=== PATIENT | female | born 1985 | race Caucasian/White ===

== ENCOUNTER 2019-07-20 17:14 | Emergency (ER) | payer BC ==
[2019-07-20 17:27] VITALS: BP 122/83
[2019-07-20] MEDS ORDERED: Ketorolac 30 MG/ML SDV IVPUSH ONE (17:33)
[2019-07-20] MEDS ORDERED: Metoclopramide 10 MG/2 ML SDV IVPUSH ONE (17:33)
[2019-07-20] MEDS ORDERED: Sodium Chloride 0.9% 10 ML Syringe FLUSH PRN (17:33)
[2019-07-20] MEDS ORDERED: diphenhydrAMINE 50 MG/ML SDV IVPUSH ONE (17:33)
--- NOTE | 2019-07-20 17:42 | EDM.PDOC ---
ED HPI GENERAL MEDICAL PROBLEM - General Chief Complaint: Headache Stated Complaint: MIGRAINE Time Seen by Provider: 07/20/19 17:24 Source of Information: Reports: Patient, RN Notes Reviewed History Limitations: Reports: No Limitations - History of Present Illness INITIAL COMMENTS - FREE TEXT/NARRATIVE: Patient is a 33-year-old female who presents to the ED for evaluation of a headache. Patient notes that she has a history of headaches, this one started around 2 PM today. However she did notice some bothersome headache type symptoms throughout the weekend. The patient states that she tried taking Excedrin migraine, Tobin back and body and her muscle relaxer Flexeril but nothing has helped much. She notes that this one seems to be more intense than her normal migraines, she is light and sound sensitive does not have any blurred vision double vision, no nausea vomiting or diarrhea, no chest pain or no shortness of breath. She just feels as if her head is in a vice-like clamp. She would rate her pain at a 7 out of 10 today and also characterizes as a throbbing pain in nature. 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 (See Below) Other ASSISTANT MANAGER PT History: csection 2013 Psychiatric History: Reports: Depression Social & Family History - Tobacco Use Smoking Status *Q: Never Smoker - Caffeine Use Caffeine Use: Reports: Coffee - Recreational Drug Use Recreational Drug Use: No ED ROS GENERAL - Review of Systems Review Of Systems: See Below Constitutional: Denies: Fever, Chills HEENT: Denies: Eye Pain, Vision Change Respiratory: Denies: Shortness of Breath Cardiovascular: Denies: Chest Pain Endocrine: Reports: No Symptoms GI/Abdominal: Denies: Abdominal Pain, Diarrhea, Nausea, Vomiting : Reports: No Symptoms Musculoskeletal: Reports: No Symptoms Skin: Reports: No Symptoms Neurological: Reports: Headache. Denies: Dizziness Psychiatric: Reports: No Symptoms Hematologic/Lymphatic: Reports: No Symptoms Immunologic: Reports: No Symptoms - Physical Exam Exam: See Below Exam Limited By: No Limitations General Appearance: Alert, WD/WN, No Apparent Distress (pt is in a darkened room and speaks softly and quietly.) Eye Exam: Bilateral Eye: EOMI, Normal Inspection, PERRL Ears: Normal External Exam Nose: Normal Inspection Throat/Mouth: Normal Inspection, Normal Lips, Normal Teeth, Normal Gums, Normal Oropharynx, Normal Voice, No Airway Compromise Head Exam: Atraumatic, Normocephalic Neck: Normal Inspection, Supple, Non-Tender, Full Range of Motion Respiratory/Chest: No Respiratory Distress, Lungs Clear, Normal Breath Sounds, No Accessory Muscle Use, Chest Non-Tender Cardiovascular: Normal Peripheral Pulses, Regular Rate, Rhythm, No Murmur GI/Abdominal: Normal Bowel Sounds, Soft, Non-Tender, No Distention, No Mass Neuro Exam (Abbreviated): Alert, Oriented, Normal Cognition, Normal Gait, No Motor/Sensory Deficits Extremities: Normal Inspection, Normal Capillary Refill Psychiatric: Normal Affect, Normal Mood Skin Exam: Warm, Dry, Intact, Normal Color, No Rash Course - Vital Signs Last Recorded V/S: Last Vital Signs Temp 98.2 F 07/20/19 17:24 Pulse 79 07/20/19 17:24 Resp 18 07/20/19 17:24 BP 122/83 07/20/19 17:24 Pulse Ox 98 07/20/19 17:24 - Orders/Labs/Meds Orders: Active Orders 24 hr Category Date Time Status Peripheral IV Care [RC] . DIRECTED Care 07/20/19 17:33 Ordered Sodium Chloride 0.9% @ 125 MLS/HR (1000ml Bag) Med 07/20/19 17:45 Ordered Sodium Chloride 0.9% [Normal Saline] 1,000 ml IV ASDIRECTED Sodium Chloride 0.9% [Saline Flush] Med 07/20/19 17:33 Ordered 10 ml FLUSH ASDIRECTED PRN Peripheral IV Insertion Adult [OM.PC] Routine Oth 07/20/19 17:33 Ordered Medication Orders Sodium Chloride (Normal Saline) 1,000 mls @ 125 mls/hr IV ASDIRECTED JANNET Last Admin: 07/20/19 17:41 Dose: 125 mls/hr Sodium Chloride (Saline Flush) 10 ml FLUSH ASDIRECTED PRN PRN Reason: Keep Vein Open Last Admin: 07/20/19 17:42 Dose: 10 ml Meds: Medications Generic Name Dose Route Start Last Admin Trade Name Freq PRN Reason Stop Dose Admin Sodium Chloride 1,000 mls @ 125 mls/hr 07/20/19 17:45 07/20/19 17:41 Normal Saline IV 125 mls/hr ASDIRECTED JANNET Administration Sodium Chloride 10 ml 07/20/19 17:33 07/20/19 17:42 Saline Flush FLUSH 10 ml ASDIRECTED PRN Administration Keep Vein Open Discontinued Medications Generic Name Dose Route Start Last Admin Trade Name Freq PRN Reason Stop Dose Admin Diphenhydramine HCl 25 mg 07/20/19 17:33 07/20/19 17:43 Benadryl IVPUSH 07/20/19 17:34 25 mg ONETIME ONE Administration Ketorolac Tromethamine 30 mg 07/20/19 17:33 07/20/19 17:42 Toradol IVPUSH 07/20/19 17:34 30 mg ONETIME ONE Administration Metoclopramide HCl 10 mg 07/20/19 17:33 07/20/19 17:44 Reglan IVPUSH 07/20/19 17:34 10 mg ONETIME ONE Administration - Re-Assessments/Exams Free Text/Narrative Re-Assessment/Exam: 07/20/19 17:42 Patient presents to the ED for evaluation of a headache. Did order IV to be placed with some IV fluids, Toradol, Reglan, and Benadryl for initial management. 07/20/19 19:10 Patient was reassessed at bedside, and she states she feels much better and her headache has subsided substantially. We will discharge home with general recommendations. Departure - Departure Time of Disposition: 19:10 Disposition: Home, Self-Care 01 Condition: Fair Clinical Impression: Headache Qualifiers: Headache type: tension-type Headache chronicity pattern: acute headache Intractability: not intractable Qualified Code(s): G44.209 - Tension-type headache, unspecified, not intractable - Discharge Information *PRESCRIPTION DRUG MONITORING PROGRAM REVIEWED*: No *COPY OF PRESCRIPTION DRUG MONITORING REPORT IN PATIENT OSCAR: No Referrals: Ayleen Washington [facility] [Primary Care Provider] - Forms: ED Department Discharge Additional Instructions: You were evaluated in the ED today for your headache. You were given some IV fluids and a combination of IV medications that helped to relieve your headache quite substantially. Recommend that you go home and sleep in a quiet dark room, try to keep yourself well hydrated. Please return to the ED if your symptoms should change or worsen. - My Orders Last 24 Hours: My Active Orders 07/20/19 17:33 Peripheral IV Care [RC] . DIRECTED Sodium Chloride 0.9% [Saline Flush] 10 ml FLUSH ASDIRECTED PRN Peripheral IV Insertion Adult [OM.PC] Routine 07/20/19 17:45 Sodium Chloride 0.9% @ 125 MLS/HR (1000ml Bag) Sodium Chloride 0.9% [Normal Saline] 1,000 ml IV ASDIRECTED - Assessment/Plan Last 24 Hours: My Active Orders 07/20/19 17:33 Peripheral IV Care [RC] . DIRECTED Sodium Chloride 0.9% [Saline Flush] 10 ml FLUSH ASDIRECTED PRN Peripheral IV Insertion Adult [OM.PC] Routine 07/20/19 17:45 Sodium Chloride 0.9% @ 125 MLS/HR (1000ml Bag) Sodium Chloride 0.9% [Normal Saline] 1,000 ml IV ASDIRECTED
[2019-07-20] MEDS ORDERED: Sodium Chloride 0.9% 1,000 ML IV SCH (17:45)
== END 2019-07-20 19:30 | disposition home or self-care (01) ==
LOC: JD.ED 17:14
DX: G44.209 Tension-type headache, unspecified, not intractable (principal); F32.9 Major depressive disorder, single episode, unspecified; Z79.899 Other long term (current) drug therapy
CPT/HCPCS: 96361; 96374; 96375; 99283; J1200; J1885; J2765; J7040

== ENCOUNTER 2020-05-19 07:27 | Day surgery (SDC) | payer BC ==
[~2020-05-19 07:27] MED LIST: Lactated Ringers 1,000 ML IV SCH; Lidocaine 1% 4 ML ONE; Lidocaine 1%/Sod Bicarbonate in NS 8.4% 1 ML Syringe IDERM PRN; Midazolam 1 MG/ML 2 ML SDV ONE; Ondansetron 4 MG/2 ML SDV ONE; Propofol 200 MG/20 ML SDV ONE; Sodium Chloride 0.9% 10 ML Syringe FLUSH PRN; Succinylcholine/Sod PF 100 MG/5 ML SYRINGE IV ONE; fentaNYL 100 MCG/2 ML SDV ONE
--- NOTE | 2020-05-19 08:02 | PCM.PREANE ---
Preanesthetic Assessment - Anesthesia/Transfusion/Family Hx Anesthesia History: Prior Anesthesia Without Reaction Other Type of Anesthesia Reaction Comment: Possibly Difficult Intubation - Review of Systems General: No Symptoms Pulmonary: No Symptoms Cardiovascular: No Symptoms Gastrointestinal: No Symptoms Neurological: No Symptoms Other: Reports: None - Physical Assessment NPO Status Date: 05/18/20 NPO Status Time: 22:00 Vital Signs: Last Vital Signs Temp 98.4 F 05/19/20 07:30 Pulse 73 05/19/20 07:30 Resp 16 05/19/20 07:30 BP 114/78 05/19/20 07:30 Pulse Ox 98 05/19/20 07:30 Height: 1.7 m Weight: 71.214 kg ASA Class: 1 Mental Status: Alert & Oriented x3 Airway Class: Mallampati = 4 (very small chin and small mouth opening. Potentially difficult airway) Dentition: Reports: Normal Dentition, Metzger(s) Thyro-Mental Finger Breadths: 3 Mouth Opening Finger Breadths: 3 ROM/Head Extension: Full Lungs: Clear to Auscultation, Normal Respiratory Effort Cardiovascular: Regular Rate, Regular Rhythm - Allergies Allergies/Adverse Reactions: Allergies Allergy/AdvReac Type Severity Reaction Status Date / Time No Known Allergies Allergy Verified 05/18/20 15:32 - Acknowledgements Anesthesia Type Planned: General Anesthesia Pt an Appropriate Candidate for the Planned Anesthesia: Yes Alternatives and Risks of Anesthesia Discussed w Pt/Guardian: Yes Pt/Guardian Understands and Agrees with Anesthesia Plan: Yes PreAnesthesia Questionnaire HEENT History: Reports: Allergic Rhinitis, Other (See Below) Other HEENT History: left ear infection, left eye conjuctivitis, sinusitis, eustachian tube dysfunction Cardiovascular History: Reports: None Respiratory History: Reports: Bronchitis, Recurrent, Other (See Below) Other Respiratory History: snoring, cough Genitourinary History: Reports: Renal Calculus, Other (See Below) Other Genitourinary History: suprapubic pain, flank pain MEAT HOSTESS History: Reports: Other (See Below) Other OB/BYN History: menorrhagia, metrohaggia, vaginitis Musculoskeletal History: Reports: None Neurological History: Reports: Headaches, Chronic, Migraines Psychiatric History: Reports: Anxiety, Depression Endocrine/Metabolic History: Reports: Vitamin D Deficiency, Other (See Below) Other Endocrine/Metabolic History: vitamin b12 deficiency, unwanted hair Hematologic History: Reports: None Immunologic History: Reports: None Oncologic (Cancer) History: Reports: None Dermatologic History: Reports: None - Past Surgical History Head Surgeries/Procedures: Reports: None HEENT Surgical History: Reports: Naso-Sinus Surgery, Tonsillectomy Cardiovascular Surgical History: Reports: None Respiratory Surgical History: Reports: None GI Surgical History: Reports: Cholecystectomy Female Surgical History: Reports: None Male Surgical History: Reports: None Endocrine Surgical History: Reports: None Neurological Surgical History: Reports: None Musculoskeletal Surgical History: Reports: None Oncologic Surgical History: Reports: None Dermatological Surgical History: Reports: None - SUBSTANCE USE Smoking Status *Q: Former Smoker Recreational Drug Use History: No - HOME MEDS Home Medications: Home Meds Citalopram [Citalopram HBr] 20 mg PO DAILY 07/20/19 [History] Cyclobenzaprine [Flexeril] 10 mg PO BEDTIME PRN 07/20/19 [History] Montelukast [Singulair] 10 mg PO DAILY 07/20/19 [History] - CURRENT (IN HOUSE) MEDS Current Meds: Current Medications Lactated Ringer's (Ringers, Lactated) 1,000 mls @ 125 mls/hr IV ASDIRECTED JANNET Stop: 05/19/20 23:00 Last Admin: 05/19/20 07:50 Dose: 125 mls/hr Documented by: Lidocaine/Sodium Bicarbonate (Buffered Lidocaine 1% In Ns 8.4%) 0.25 ml IDERM ONETIME PRN PRN Reason: Prior to IV Start Stop: 05/19/20 18:00 Last Admin: 05/19/20 07:49 Dose: 0.25 ml Documented by: Sodium Chloride (Saline Flush) 10 ml FLUSH ASDIRECTED PRN PRN Reason: Keep Vein Open Stop: 05/19/20 18:00 Discontinued Medications Fentanyl (Sublimaze) Confirm Administered Dose 200 mcg .ROUTE .STK-MED ONE Stop: 05/19/20 07:14 Lidocaine HCl (Xylocaine-Mpf 1%) Confirm Administered Dose 4 mls @ as directed .ROUTE .STK-MED ONE Stop: 05/19/20 07:25 Midazolam HCl (Versed 1 Mg/Ml) Confirm Administered Dose 2 mg .ROUTE .STK-MED ONE Stop: 06/26/20 07:14 Ondansetron HCl (Zofran) Confirm Administered Dose 8 mg .ROUTE .STK-MED ONE Stop: 05/19/20 07:25 Propofol (Diprivan 20 Ml) Confirm Administered Dose 200 mg .ROUTE .STK-MED ONE Stop: 05/19/20 07:14
[2020-05-19] MEDS ORDERED: ceFAZolin 1 GM Vial ONE (08:50)
[2020-05-19] MEDS: Bupivacaine 0.25% 10 ML SDV ONE ×2 (09:17→09:52)
[2020-05-19] MEDS ORDERED: Lactated Ringers 1,000 ML ONE ×2 (09:21→11:31)
[2020-05-19] MEDS ORDERED: ePHEDrine Sulfate/0.9% NaCl/Pf 25 MG/5 ML SYRINGE IV ONE (09:22)
[2020-05-19] MEDS ORDERED: Propofol 200 MG/20 ML SDV ONE (10:27)
--- NOTE | 2020-05-19 10:35 | PCM.OPNOTE ---
- General Post-Op/Procedure Note Date of Surgery/Procedure: 05/19/20 Operative Procedure(s): laparoscopy with partial removal left ovary with endometrial cyst. Hysteroscopy with endometrial biopsy Pre Op Diagnosis: abdominal suprapubic pain, menorrhagia, dysmenorrhea, metrorrhagia Post-Op Diagnosis: Same plus left ovarian endometrial cyst Anesthesia Technique: General ET Tube Primary Surgeon: Juan Diego Velazquez Secondary Surgeon: Trever Mcrae Anesthesia Provider: True Morales Reason Road Mender Was Necessary: assist in surgery, decrease comorbidity and mortaly Role of Road Mender: assist in surgery, decrease comorbidity and mortaly Fluid Replacement, Intraop: 2,200 Output, Urine Amount: 125 EBL in mLs: 10 Drain/Tube Comments:: none Complications: None Condition: Good Free Text/Narrative:: Patient was transported to operating room #4 in medical office building. She was placed under endotracheal general anesthesia in the low dorsolithotomy position. Prepared and draped in a sterile fashion. SCDs in place and functioning prior to surgery, 2 g of Ancef given preoperatively. Timeout performed confirming name date of and procedures laparoscopy possible biopsies are removal of more tube and ovary hysteroscopy with D&C. Examination under anesthesia revealed anterior uterus not enlarged no adnexal masses were palpated. The umbilical incision was made by injecting 1.5 mL of Marcaine 1% without epinephrine at the area of the planned incision, varies needle introduced without difficulty pneumoperitoneum was obtained. 5 mm self- retaining trocar introduced and prompt visualization of pelvic organs was accomplished. Additional trochars placed to the right flank and left flank and inserted without difficulty. The appendix. Normal gallbladder was not able to be visualized the pelvic area revealed no obvious endometriosis. There was an ovarian cyst on the left side which subsequently turned out to appear to be a endometrial cyst this was removed without difficulty utilizing Enseal. Both tubes appeared normal a small paratubal cyst on the left side was also removed by crossclamping and activating the Enseal and incising. Irrigation was carried out at the end of the procedure and Interceed was then placed over the area of the oophorocystectomy on the left side. Interceed was moistened. Sponge needle pack and instrument count correct x2 in the abdominal cavity pneumoperitoneum was reduced and the incision closed with 3-0 Monocryl interrupted Dermabond applied. Hysteroscopy and endometrial biopsy were performed by sounding the uterus to 8.5 cm dilating to accommodate the hysteroscope. The hysteroscope was introduced and prompt visualization of the left and right tubal ostia was obtained. The e ndometrial cavity showed no polyps. Curettage was performed and all tissue sent to pathology for tissue evaluation. 1 set of pictures taken revealing the following images: 001 visualization of the appendix 002 liver area 003 the dome of the uterus the left round ligament left fallopian tube and left ovary 004 right ovary and tube and round ligament 005 shows the cystic structure on the inferior portion of the ovary on the left ovary. 006 shows partial removal of the ovarian cysts in progress. 007 shows the paratubal cyst prior to removal 008 shows the left ovary after removal of the endometrioid cyst 009 shows placement of Interceed 010 shows the Interceed after it has been moistened 011 picture of the anterior abdominal wall 012 shows the left trocar site after remove the trocar with no bleeding 013 right ostium from right lower flank trocar no bleeding 014 right tubal ostia 015 left tubal ostia 016 dome of the endometrial cavity
[2020-05-19] MEDS: fentaNYL 100 MCG/2 ML SDV IVPUSH PRN ×2 (10:55→11:01)
[2020-05-19] MEDS ORDERED: Meperidine 50 MG/ML Vial IVPUSH ONE (11:00)
--- NOTE | 2020-05-19 11:03 | PCM.POSTAN ---
POST ANESTHESIA ASSESSMENT - MENTAL STATUS Mental Status: Somnolent - VITAL SIGNS Vital Signs: Last Vital Signs Temp 98.0 F 05/19/20 10:38 Pulse 110 H 05/19/20 10:38 Resp 12 05/19/20 10:38 BP 115/67 05/19/20 10:38 Pulse Ox 100 05/19/20 10:38 - RESPIRATORY Respiratory Status: Respiratory Rate WNL, Airway Patent, O2 Saturation Stable, Supplemental Oxygen - CARDIOVASCULAR CV Status: Blood Pressure Stable, Elevated Pulse Rate - GASTROINTESTINAL GI Status: No Symptoms - PAIN Pain Score: 0 - POST OP HYDRATION Hydration Status: Adequate & Stable
[2020-05-19] MEDS: HYDROmorphone 0.5 MG/0.5 ML Syringe IVPUSH PRN ×2 (11:25→11:40)
[2020-05-19] MEDS ORDERED: Ketorolac 30 MG/ML SDV ONE (12:07)
[2020-05-19] MEDS ORDERED: Prochlorperazine 10 MG/2 ML SDV IVPUSH PRN (12:17)
[2020-05-19 13:30] VITALS: BP 100/66; PULSE 81
== END 2020-05-19 13:57 | disposition home or self-care (01) ==
LOC: JD.SDS 07:27
PROVIDERS: ATTEND Obstetrics & Gynecology
DX: N83.12 Corpus luteum cyst of left ovary (principal); F41.9 Anxiety disorder, unspecified; F32.9 Major depressive disorder, single episode, unspecified; Z87.891 Personal history of nicotine dependence; Z79.899 Other long term (current) drug therapy
CPT/HCPCS: 00840; 36415; 84702; C1765; J0171; J0330; J0690; J1170; J1885; J2001; J2250; J2405; J2704; J3010; J3490; J7120